=== PATIENT | female | born 1950 | race Caucasian/White ===

== ENCOUNTER 2018-07-20 07:26 | Emergency (ER) | payer OTHER ==
[~2018-07-20] VITALS: Ht 162.6 cm; Wt 63.5 kg
[~2018-07-20 07:26] MED LIST: ASA5UEC PO; BENADRYL25 MG PO; CIPRO500 MG/5 M PO; LANOXIN 0.250.25 M1 PO; LIPITOR40 MG PO; MIRALAX255 GM PO; MOBIC15 MG PO; MULTIVITAMINS PO; PERCOCET 5-3251 EACH PO; PERCOCET 7.5-31 EACH PO; PREDNISONE 20 M20 M1 PO; PRINIVIL5 MG PO; SYNTHROID75 MCG PO
[2018-07-20 07:29] VITALS: BP 132/76
[2018-07-20] MEDS ORDERED: IBUPROFEN 400400 M2 PO (08:56)
[2018-07-20] MEDS ORDERED: SENNA-DOCUSATE1 EAC1 PO (08:56)
[2018-07-20] MEDS ORDERED: NORCO 5-325 TA1 EACH PO (08:56)
[2018-07-20] MEDS ORDERED: NORFLEX100 MG PO (08:56)
== END 2018-07-20 09:20 | disposition home or self-care (01) ==
LOC: ER 07:26
DX: R07.89 Other chest pain (principal); E78.5 Hyperlipidemia, unspecified; E03.9 Hypothyroidism, unspecified; Z95.0 Presence of cardiac pacemaker; Z88.1 Allergy status to other antibiotic agents; W19.XXXA Unspecified fall, initial encounter; Y93.89 Activity, other specified; Y92.89 Other specified places as the place of occurrence of the external cause; Y99.8 Other external cause status

== ENCOUNTER → 2020-08-01 | Outpatient (CLI) | payer OTHER ==
[~2020-08-01] MED LIST changes: +ADVAIR HFA 115-12 G1 INH; +ALBUTEROL2.5 MG/0.5 INH; +ALIGN4 MG PO; +ASA81BEC PO; +BREO ELLIPTA 11 EACH INH; +CELEXA 10 MG TA10 MG PO; +CENTRAVITES 501 EAC1 PO; +COQ-10100 MG PO; +IBUPROFEN 400400 M2 PO; +LANOXIN125 MCG PO; +LISINOPRIL5 MG PO; +LIVALO4 MG PO; +MELATONIN10 M3 PO; +NORCO 5-325 TA1 EACH PO; +NORFLEX100 MG PO; +OMEGA-3 FISH1200 MG PO; +PRALUENT P75 MG/1 ML SUBQ; -PRINIVIL5 MG PO; +SENNA-DOCUSATE1 EAC1 PO; +SINGULAIR 10 MG10 MG PO; +SYNTHROID75 MC1 PO; -SYNTHROID75 MCG PO; +VITAMIN B COMP1 EACH PO; +VITAMIN D3100 MCG PO; +XANAX XR1 MG PO; +ZYRTEC10 M5 PO
== END ==
LOC: LAB 12:42
PROVIDERS: ATTEND Orthopaedic Surgery Hand Surgery
DX: Z01.812 Encounter for preprocedural laboratory examination (principal); Z20.822 Contact with and (suspected) exposure to COVID-19

== ENCOUNTER 2020-08-04 11:21 | Day surgery (SDC) | payer OTHER ==
[~2020-08-04] VITALS: Ht 162.6 cm; Wt 91.2 kg
--- NOTE | ~2020-08-04 | O ---
[facility] [place] [address] OPERATIVE REPORT Name: PARI PATE Room #: [facility]P [facility]..#: [id number] Admission: 08/04/20 Attend Phys: Ana María Gann, Discharge: 08/04/20 Date of : 50 Report #: [id number] THIS REPORT FOR: cc: Jose Cid MD, Neal A. MD Deardorff, Valerie A. MD ~ DOC #: [id number] Ana María Gann MD DATE OF SERVICE: 08/04/2020 PREOPERATIVE DIAGNOSIS: Right thumb dorsal ganglion cyst/mucous cyst with osteoarthritis. POSTOPERATIVE DIAGNOSIS: Right thumb dorsal ganglion cyst.mucous cyst with osteoarthritis. PROCEDURE PERFORMED: Right thumb dorsal mass excision and joint debridement. SURGEON: Dr. Ana María Gann. ANESTHESIA: Local anesthesia. ESTIMATED BLOOD LOSS: Minimal. TOURNICOT: Finger tournicot time was approximately 10 minutes. COMPLICATIONS: None. CONDITION: Stable. DISPOSITION: To the recovery room. INDICATIONS: The patient is a 69-year-old female with the above-mentioned diagnosis. She elected for operative treatment. The risks, benefits, alternatives and complications were discussed including but not limited to infection, damage to vessels or nerves, wound healing problems, nail deformity, recurrence. Informed consent was obtained in the preoperative holding area under sterile conditions after a timeout was taken. A total of 8 mL of 2% lidocaine with 0.25% Marcaine was injected in divided doses, both orally and dorsally as a digital block. She tolerated this well. DESCRIPTION OF PROCEDURE: The patient was brought over to the operating room and placed in the supine position. She received preoperative antibiotics. Right upper extremity was sterilely prepped and draped in the usual fashion. Final timeout was taken to verify correct patient, operative procedure, operative site, all concurred, a finger tournicot was applied. The entire [address] [address] OPERATIVE REPORT Name: PARI PATE Room #: [facility] M..#: [id number] Admission: 08/04/20 Attend Phys: Ana María Gann, Discharge: 08/04/20 Date of : 50 Report #: [id number] procedure was done with the aid of 3.5 loupe magnification. A T-type incision was made over the IP joint of the right thumb. Full thickness flaps were created, multiloculated ganglion cyst was easily identified and completely excised. The joint was then entered laterally and debrided with a synovial rongeur. Any hemostasis was achieved with bipolar cautery. The wound was thoroughly irrigated. Skin was closed with 5-0 nylon suture. The tournicot was removed. The wound was dressed with Adaptic and sterile gauze. She was placed in a bulky dressing and a volar finger splint. All fingers were pink and brisk capillary refill at the conclusion of the case after removal of the tournicot and after application of the dressing. All sponge and needle counts were correct. The patient was transferred to postoperative room in stable condition. MD NOELLE Mondragon/AMISHA/ZEKE By: [id number] Ana María Gann MD /nt
[2020-08-04 12:10] VITALS: BP 147/98
[2020-08-04 12:33] LABS: CALCIUM 9.2 mg/dL (8.5-10.1); CREATININE 0.7 mg/dL (0.6-1.0); POTASSIUM 4.3 mmol/L (3.5-5.1)
[2020-08-04 14:34] VITALS: BP 147/98
--- NOTE | 2020-08-05 07:02 | EKG ---
[address] [address] ELECTROCARDIOGRAM REPORT Name: PARI PATE Room #: [facility]#: [id number] Admission: 08/04/20 Attend Phys: Ana María Gann, Discharge: 08/04/20 Date of : 50 Report #: [id number] [facility] Test Date: 2020-08-04 Test Time: 12:21:16 Pat Name: PARI PATE Department: Room: Gender: F Medical Scientific Liaison: NICCI : 1950 Requested By: Ana María Gann Order Number: [id number] MD: Feliciano Arroyo Measurements Intervals [place] Rate: 79 P: 4 GA: 168 QRS: -55 QRSD: 127 T: 42 QT: 475 QTc: 545 Interpretive Statements Atrial-sensed ventricular-paced complexes No further analysis attempted due to paced rhythm No previous ECG available for comparison Electronically Signed On 08-05-2020 7:02:14 CDT by Feliciano Arroyo [email or web address] <ELECTRONICALLY SIGNED> By: Feliciano Arroyo MD, [facility] 08/05/20 0702 1221 1221 Feliciano Arroyo MD, FACC /EPI
--- NOTE | 2020-08-08 17:06 | PATH ---
[facility] [place] [address] PATHOLOGY RPT PROCEDURE Name: ESE DIEZ Lauro Room #: DEP [facility] M.R.#: [id number] Admission: 08/04/20 Date of : 50 Discharge: 08/04/20 Report #: [id number] Path Case #: [id number] [facility] Accession Number: [id number] . 01 Material submitted: . thumb - SYNOVIAL CYST, RIGHT THUMB. Modifiers: right . 01 Clinical history: . EXCISIONAL MASS MUCOUS CYST OF DIGIT OF RIGHT HAND, PRIMARY OSTEOARTHRITIS OF RIGHT HAND . 02 Diagnosis: Synovial cyst, right thumb, excision: - Consistent with a ganglion cyst. ([facility]:overnight associate; 08/08/2020) [facility] 08/08/2020 1345 Local . 02 Electronically signed: . Estefania Landa MD, Pathologist NPI- [id number] . 01 Gross description: . Received in formalin labeled "Diez, Ese, synovial cyst, right thumb" is an irregular fragment of andrade-white soft tissue measuring 1.3 x 0.5 x 0.2 cm. The specimen is submitted without sectioning in cassette A1. ([facility]; 08/05/2020) [facility] 08/05/2020 1643 Local . 02 Pathologist provided ICD-10: M19.041 . 02 CPT . 990248 Specimen Comment: A courtesy copy of this report has been sent to [phone] Specimen Comment: [phone] Specimen Comment: Report sent to / Performed at: [address], [place] [id number] MD Jostin Smith MD Phone: [phone] Performed at: [address] [id number] MD Estefania Landa MD Phone: [phone]
== END 2020-08-04 14:40 | disposition home or self-care (01) ==
LOC: OR 11:21 → TBA 14:21 → OR 14:30 → EDSTATUS 14:32 → OR 14:40
PROVIDERS: ATTEND Orthopaedic Surgery Hand Surgery
DX: M19.041 Primary osteoarthritis, right hand (principal); M67.441 Ganglion, right hand; I10 Essential (primary) hypertension; E78.5 Hyperlipidemia, unspecified; E03.9 Hypothyroidism, unspecified; E78.00 Pure hypercholesterolemia, unspecified; F32.9 Major depressive disorder, single episode, unspecified; F41.9 Anxiety disorder, unspecified; J45.909 Unspecified asthma, uncomplicated; Z98.890 Other specified postprocedural states; Z79.899 Other long term (current) drug therapy; Z85.3 Personal history of malignant neoplasm of breast; Z85.828 Personal history of other malignant neoplasm of skin; Z98.51 Tubal ligation status
CPT/HCPCS: 50010; 50101; 50386; 56527; 57006; 57091; 57178